=== PATIENT | female | born 1990 | race Caucasian/White ===

== ENCOUNTER 2021-10-29 15:17 | Emergency (ER) | payer OTHER ==
[~2021-10-29] VITALS: Ht 160 cm; Wt 75.0 kg
[2021-10-29] MEDS ORDERED: ACETAMINOPHEN 325MG TABLET PO STA (17:08)
[2021-10-29 17:43] LABS: BASOPHILS % 0.3 % (0.0-2.0); EOSINOPHILS % 0.2 % (0.0-5.0); HEMATOCRIT. 40.2 % (36.0-48.0); HEMOGLOBIN. 13.8 g/dL (12.0-16.0); LYMPHOCYTES % 9.8 % (20.0-50.0); MEAN CORPUSCULAR HEMOGLOBIN 29.3 pg (28.0-32.0); MEAN CORPUSCULAR VOLUME 85.1 fL (81.0-99.0); MEAN PLATELET VOLUME 9.2 fl (7.4-10.4); MONOCYTES % 7.1 % (2.0-8.0); NEUTROPHILS % 82.6 % (40.0-76.0); PLATELET 296 x1000/uL (130-400); RED BLOOD CELL COUNT 4.72 mill/uL (4.2-5.4); RED CELL DISTRIBUTION WIDTH 13.6 % (11.6-14.6)
[2021-10-29 17:54] LABS: CHLORIDE 100 mEq/L (98-107)
[2021-10-29 17:56] LABS: HCG SCREEN NEGATIVE
[2021-10-29] MEDS ORDERED: MORPHINE SULFATE 4 MG/ML CPJ (NOT FOR IM USE) IV NR (19:00)
[2021-10-29] MEDS ORDERED: ONDANSETRON HCL 4MG/2ML INJ IV NR (19:00)
[2021-10-29] MEDS ORDERED: IOHEXOL-350 100 ML BOTTLE ONE (19:09)
[2021-10-29] MEDS ORDERED: KETOROLAC 15MG/ML VIAL IV NR (19:45)
[2021-10-29] MEDS ORDERED: SIME80TA15 MT (19:53)
[2021-10-29] MEDS ORDERED: SIMETHICONE 80MG TABLET CHEW PO PRN (20:00)
[2021-10-29 20:13] VITALS: BP 124/79
== END 2021-10-29 20:15 | disposition home or self-care (01) ==
LOC: ER 15:27
DX: R07.89 Other chest pain (principal); R05.9 Cough, unspecified
CPT/HCPCS: 36415; 71045; 71275; 80053; 83880; 84484; 84703; 85025; 85379; 93005; 96374; 96375; 99285; J1885; J2270; J2405; Q9967